=== PATIENT | male | born 1945 | race Caucasian/White ===

== ENCOUNTER 2021-04-18 19:00 | Inpatient (IN) | payer MEDICARE, OTHER ==
[~2021-04-18] VITALS: Ht 172.7 cm; Wt 87.6 kg
[2021-04-18] MEDS ORDERED: SODIUM CHLORIDE 0.9% 1000ML 1,000 ML IV STA ×2 (19:14→20:43)
[2021-04-18 19:43] LABS: BASOPHILS # (AUTO) 0.1 (0.0-0.1); BASOPHILS % 0.3 % (0.0-1.0); HEMATOCRIT 51.2 % (38.2-49.6); HEMOGLOBIN 15.6 g/dL (14.0-18.0); LYMPHOCYTES # (AUTO) 1.1 (1.0-3.2); MEAN CORPUSCULAR HGB CONC 30.5 g/dL (31-35); MEAN CORPUSCULAR VOLUME 95.2 fL (81-99); MONOCYTES # (AUTO) 0.8 (0.2-0.8); MONOCYTES % 3.5 % (4.4-11.3); NEUTROPHILS # (AUTO) 19.5 (2.1-6.9); NEUTROPHILS % 90.5 % (38.7-80.0); PLATELET COUNT 316 x10e3/uL (140-360); RED BLOOD COUNT 5.38 x10e6/uL (4.3-5.7); RED CELL DISTRIBUTION WIDTH 15.2 % (11.7-14.4)
[2021-04-18 20:10] LABS: ALBUMIN 3.9 g/dL (3.5-5.0); ANION GAP 39.5 mmol/L (8-16); CALCIUM 9.1 mg/dL (8.4-10.2); CREATININE, SERUM 2.35 mg/dL (0.72-1.25)
[2021-04-18] MEDS ORDERED: PIPERACILLIN/TAZOBACTAM 3.375 GM in SODIUM CHLORIDE 0.9% 50ML 50 ML IV STA (20:14)
[2021-04-18] MEDS ORDERED: Vancomycin IV 1 GM in SODIUM CHLORIDE 0.9% 250ML 250 ML IV STA (20:14)
[2021-04-18 20:19] LABS: POTASSIUM 6.5 mmol/L (3.5-5.1)
[2021-04-18] MEDS ORDERED: INSULIN REGULAR, HUMAN 3ML VL 100 UNIT in SODIUM CHLORIDE 0.9% 100 ML IV SCH ×2 (20:30)
[2021-04-18] MEDS ORDERED: CALCIUM GLUCONATE 10% INJ 0.465 MEQ/ML VIAL IV STA (20:42)
[2021-04-18] MEDS ORDERED: SOD POLYSTYRENE SULFONATE SUSP 15 GM/60 ML BTL PO STA (20:42)
[2021-04-18] MEDS ORDERED: ALBUTEROL SULF 0.083% NEB SOLN 3 ML NEB NEB STA (20:42)
[2021-04-18 21:01] LABS: CLARITY,URINE CLEAR (CLEAR); COLOR,URINE YELLOW (YELLOW); KETONES,URINE 2+ (NEGATIVE); LEUKOCYTE ESTERASE ,URINE NEGATIVE (NEGATIVE); NITRITE,URINE NEGATIVE (NEGATIVE); PROTEIN,URINE DIPSTICK TRACE (NEGATIVE); URINE UROBILINOGEN 0.2 mg/dL (0.2 - 1)
[2021-04-18 21:18] LABS: CREATINE KINASE MB 2.1 ng/mL (0-5.0); THYROID STIMULATING HORMONE 2.027 uIU/mL (0.350-4.940)
[2021-04-18 21:21] LABS: BACTERIA,URINE RARE /HPF; EPITHELIAL CELLS,URINE RARE /LPF; MUCUS,URINE FEW (RARE); RBC,URINE 0-5 /HPF (0-5); WBC,URINE (MAN) 0-5 /HPF (0-5)
[2021-04-18] MEDS ORDERED: ALBUTEROL SULF 0.083% NEB SOLN 3 ML NEB ONE (21:27)
[2021-04-18 21:51] LABS: BAND NEUTROPHILS % (MANUAL) 4 %; LYMPHOCYTES % (MANUAL) 7 % (19-48); MONOCYTES % (MANUAL) 3 % (3.4-9.0); NEUTROPHILS % (MANUAL) 86 % (40-74); PLATELET ESTIMATE ADEQUATE; PLATELET MORPHOLOGY COMMENT NORMAL; RBC MORPHOLOGY COMMENT NORMAL
[2021-04-18 22:45] VITALS: BP 119/61
[2021-04-18 23:00] VITALS: BP_SYST 116; BP_SYST 6; BP_DIAS 53
[2021-04-18 23:06] VITALS: BP 116/53
[2021-04-18 23:15] VITALS: BP 111/51
[2021-04-18 23:30] VITALS: BP 103/52
[2021-04-18] MEDS ORDERED: Insulin Pump (23:41)
[2021-04-18 23:45] VITALS: BP 101/48
[2021-04-18] MEDS ORDERED: METFORMIN HCL500 MG PO (23:45)
[2021-04-18] MEDS ORDERED: LISINOPRIL10 MG PO (23:45)
[2021-04-18] MEDS ORDERED: LIPITOR20 MG PO (23:45)
[2021-04-18] MEDS ORDERED: VITAMIN D310 MCG (23:45)
[2021-04-19] VITALS (25 sets, daily range): BP systolic 86–128; BP diastolic 34–69
[2021-04-19] MEDS: SODIUM CHLORIDE 0.9% 1000ML 1,000 ML IV SCH ×3 (05:00→18:49)
[2021-04-19 05:01] LABS: BASOPHILS # (AUTO) 0.1 (0.0-0.1); BASOPHILS % 0.3 % (0.0-1.0); HEMATOCRIT 47.7 % (38.2-49.6); HEMOGLOBIN 14.2 g/dL (14.0-18.0); LYMPHOCYTES # (AUTO) 1.6 (1.0-3.2); LYMPHOCYTES % 5.4 % (18.0-39.1); MEAN CORPUSCULAR HGB CONC 29.8 g/dL (31-35); MEAN CORPUSCULAR VOLUME 97.5 fL (81-99); MONOCYTES # (AUTO) 2.2 (0.2-0.8); MONOCYTES % 7.7 % (4.4-11.3); NEUTROPHILS # (AUTO) 24.9 (2.1-6.9); NEUTROPHILS % 85.3 % (38.7-80.0); PLATELET COUNT 279 x10e3/uL (140-360); RED BLOOD COUNT 4.89 x10e6/uL (4.3-5.7); RED CELL DISTRIBUTION WIDTH 15.7 % (11.7-14.4)
[2021-04-19] MEDS ORDERED: SODIUM CHLORIDE 0.9% 1000ML 1,000 ML ONE (05:04)
[2021-04-19 06:16] LABS: BLOOD UREA NITROGEN 49 mg/dL (7-26); BUN/CREATININE RATIO 18 (6-25); CALCIUM 8.2 mg/dL (8.4-10.2); CHLORIDE 100 mmol/L (98-107); CREATININE, SERUM 2.77 mg/dL (0.72-1.25); EST GLOMERULAR FILTRATION RATE 22 ML/MIN (60-); SODIUM 137 mmol/L (136-145)
[2021-04-19 06:17] LABS: ANION GAP 38.7 mmol/L (8-16)
[2021-04-19 06:18] LABS: POTASSIUM 6.7 mmol/L (3.5-5.1)
[2021-04-19 06:19] LABS: CARBON DIOXIDE < 5 mmol/L (22-29); GLUCOSE 628 mg/dL (74-118)
[2021-04-19] MEDS ORDERED: SODIUM BICARBONATE 8.4% INJ 50 ML SYR IV ONE (08:45)
[2021-04-19] MEDS ORDERED: CEFTRIAXONE 1 GM in SODIUM CHLORIDE 0.9% 50ML 50 ML IV SCH (09:00)
[2021-04-19] MEDS ORDERED: INSULIN REGULAR, HUMAN 3ML VL 100 UNIT in SODIUM CHLORIDE 0.9% 99 ML IV SCH ×2 (09:15)
[2021-04-19] MEDS ORDERED: DEXTROSE 50% SYRINGE 50 ML IV PRN ×2 (09:15→23:30)
[2021-04-19] MEDS: CEFTRIAXONE 1 GM in SODIUM CHLORIDE 0.9% 50ML 50 ML IV SCH (09:53)
[2021-04-19] MEDS ORDERED: MAGNESIUM SULF 1GRAM/DEXTROSE 100 ML IV PRN (10:00)
[2021-04-19] MEDS ORDERED: DEXTROSE 5%/0.45% SOD CHL 1,000 ML IV SCH (10:00)
[2021-04-19] MEDS ORDERED: POTASSIUM CHLORIDE 20MEQ/100ML 200 ML IV PRN (10:00)
[2021-04-19] MEDS ORDERED: SODIUM CHLORIDE 0.9% 1000ML 1,000 ML IV SCH (10:00)
[2021-04-19 10:27] LABS: ANION GAP 34.7 mmol/L (8-16); CALCIUM 8.2 mg/dL (8.4-10.2); CREATININE, SERUM 3.01 mg/dL (0.72-1.25); MAGNESIUM 2.4 MG/DL (1.3-2.1); POTASSIUM 4.7 mmol/L (3.5-5.1)
[2021-04-19] MEDS: INSULIN REGULAR, HUMAN 3ML VL 100 UNIT in SODIUM CHLORIDE 0.9% 100 ML IV SCH ×4 (11:34→22:15)
[2021-04-19 12:45] LABS: BASOPHILS # (AUTO) 0.1 (0.0-0.1); BASOPHILS % 0.2 % (0.0-1.0); HEMATOCRIT 44.8 % (38.2-49.6); HEMOGLOBIN 14.2 g/dL (14.0-18.0); LYMPHOCYTES # (AUTO) 1.4 (1.0-3.2); LYMPHOCYTES % 5.9 % (18.0-39.1); MEAN CORPUSCULAR HGB CONC 31.7 g/dL (31-35); MEAN CORPUSCULAR VOLUME 91.6 fL (81-99); MONOCYTES # (AUTO) 2.1 (0.2-0.8); NEUTROPHILS # (AUTO) 19.8 (2.1-6.9); NEUTROPHILS % 83.8 % (38.7-80.0); PLATELET COUNT 283 x10e3/uL (140-360); RED BLOOD COUNT 4.89 x10e6/uL (4.3-5.7); RED CELL DISTRIBUTION WIDTH 15.4 % (11.7-14.4)
[2021-04-19 13:35] LABS: LYMPHOCYTES % (MANUAL) 12 % (19-48); MONOCYTES % (MANUAL) 5 % (3.4-9.0); NEUTROPHILS % (MANUAL) 83 % (40-74); PLATELET ESTIMATE ADEQUATE; PLATELET MORPHOLOGY COMMENT NORMAL; RBC MORPHOLOGY COMMENT NORMAL
[2021-04-19 14:16] LABS: CALCIUM 7.9 mg/dL (8.4-10.2); CREATININE, SERUM 2.76 mg/dL (0.72-1.25)
[2021-04-19 17:31] LABS: ANION GAP 18.6 mmol/L (8-16); CALCIUM 8.4 mg/dL (8.4-10.2); CREATININE, SERUM 2.36 mg/dL (0.72-1.25); POTASSIUM 3.6 mmol/L (3.5-5.1)
[2021-04-19] MEDS ORDERED: DEXTROSE 5%/0.9% SOD CHL 1,000 ML IV SCH (18:30)
[2021-04-19 21:08] LABS: CALCIUM 8.1 mg/dL (8.4-10.2); CREATININE, SERUM 1.98 mg/dL (0.72-1.25)
[2021-04-19] MEDS ORDERED: POTASSIUM CHLORIDE 20 MEQ TAB CR PO STA (21:29)
[2021-04-19] MEDS ORDERED: D5NS/KCL 20MEQ 1,000 ML IV ONE (21:46)
[2021-04-19] MEDS: ATORVASTATIN 40 MG TAB PO SCH (21:46)
[2021-04-19] MEDS: D5NS/KCL 20MEQ 1,000 ML IV SCH (22:06)
[2021-04-19] MEDS ORDERED: DEXTROSE 50% SYRINGE 50 ML IV ONE (23:41)
[2021-04-20] VITALS (23 sets, daily range): BP systolic 96–169; BP diastolic 62–96
[2021-04-20] MEDS: SODIUM CHLORIDE 0.9% 1000ML 1,000 ML IV SCH ×3 (01:15→08:59)
[2021-04-20 01:41] LABS: ANION GAP 16.5 mmol/L (8-16); CALCIUM 7.4 mg/dL (8.4-10.2); CREATININE, SERUM 1.68 mg/dL (0.72-1.25); POTASSIUM 3.5 mmol/L (3.5-5.1)
[2021-04-20 04:59] LABS: BASOPHILS # (AUTO) 0.1 (0.0-0.1); BASOPHILS % 0.3 % (0.0-1.0); HEMATOCRIT 39.5 % (38.2-49.6); LYMPHOCYTES # (AUTO) 1.4 (1.0-3.2); LYMPHOCYTES % 6.9 % (18.0-39.1); MEAN CORPUSCULAR HEMOGLOBIN 28.8 pg (28-32); MEAN CORPUSCULAR HGB CONC 32.9 g/dL (31-35); MEAN CORPUSCULAR VOLUME 87.4 fL (81-99); MONOCYTES # (AUTO) 1.6 (0.2-0.8); MONOCYTES % 8.1 % (4.4-11.3); NEUTROPHILS # (AUTO) 16.6 (2.1-6.9); PLATELET COUNT 245 x10e3/uL (140-360); RED BLOOD COUNT 4.52 x10e6/uL (4.3-5.7); RED CELL DISTRIBUTION WIDTH 15.4 % (11.7-14.4)
[2021-04-20 05:14] LABS: ANION GAP 14.8 mmol/L (8-16); CALCIUM 7.5 mg/dL (8.4-10.2); CREATININE, SERUM 1.58 mg/dL (0.72-1.25); POTASSIUM 3.8 mmol/L (3.5-5.1)
[2021-04-20 05:53] LABS: CHOL/HDL RATIO 2.4 (3.9-4.7)
[2021-04-20 06:02] LABS: THYROID STIMULATING HORMONE 0.548 uIU/mL (0.350-4.940)
[2021-04-20] MEDS: D5NS/KCL 20MEQ 1,000 ML IV SCH (06:29)
[2021-04-20] MEDS: CEFTRIAXONE 1 GM in SODIUM CHLORIDE 0.9% 50ML 50 ML IV SCH (09:17)
[2021-04-20 09:44] LABS: CALCIUM 8.4 mg/dL (8.4-10.2); CREATININE, SERUM 1.52 mg/dL (0.72-1.25); MAGNESIUM 2.1 MG/DL (1.3-2.1)
[2021-04-20] MEDS: ONDANSETRON HCL 4 MG ORAL DISINTEGRATING TAB PO PRN ×2 (11:40→21:24)
[2021-04-20] MEDS ORDERED: LEVOTHYROXINE75 MCG PO (12:57)
[2021-04-20] MEDS ORDERED: JARDIANCE25 MG PO (12:57)
[2021-04-20] MEDS: LISINOPRIL 2.5 MG TAB PO SCH (13:18)
[2021-04-20 14:45] LABS: ANION GAP 15.4 mmol/L (8-16); CALCIUM 8.1 mg/dL (8.4-10.2); CREATININE, SERUM 1.49 mg/dL (0.72-1.25); MAGNESIUM 2.1 MG/DL (1.3-2.1); POTASSIUM 4.4 mmol/L (3.5-5.1)
[2021-04-20] MEDS: D5.45%NS/KCL 20MEQ 1,000 ML IV SCH (16:09)
[2021-04-20 19:07] LABS: ANION GAP 15.2 mmol/L (8-16); CREATININE, SERUM 1.34 mg/dL (0.72-1.25); MAGNESIUM 1.9 MG/DL (1.3-2.1); POTASSIUM 4.2 mmol/L (3.5-5.1)
[2021-04-20] MEDS: INSULIN REGULAR, HUMAN 3ML VL 100 UNIT in SODIUM CHLORIDE 0.9% 100 ML IV SCH ×2 (20:08)
[2021-04-20] MEDS: ATORVASTATIN 40 MG TAB PO SCH (20:22)
[2021-04-21] VITALS (20 sets, daily range): BP systolic 122–167; BP diastolic 81–99
[2021-04-21 00:29] LABS: ANION GAP 13.3 mmol/L (8-16); CREATININE, SERUM 1.2 mg/dL (0.72-1.25); MAGNESIUM 1.9 MG/DL (1.3-2.1); POTASSIUM 4.3 mmol/L (3.5-5.1)
[2021-04-21] MEDS: D5.45%NS/KCL 20MEQ 1,000 ML IV SCH (02:19)
[2021-04-21] MEDS: INSULIN REGULAR, HUMAN 3ML VL 100 UNIT in SODIUM CHLORIDE 0.9% 100 ML IV SCH ×2 (04:02)
[2021-04-21] MEDS: LEVOTHYROXINE SODIUM 75 MCG TAB PO SCH (06:11)
[2021-04-21 07:05] LABS: ANION GAP 16.6 mmol/L (8-16); CALCIUM 8.7 mg/dL (8.4-10.2); CREATININE, SERUM 1.2 mg/dL (0.72-1.25); POTASSIUM 4.6 mmol/L (3.5-5.1)
[2021-04-21] MEDS: CEFTRIAXONE 1 GM in SODIUM CHLORIDE 0.9% 50ML 50 ML IV SCH (08:51)
[2021-04-21] MEDS: LISINOPRIL 2.5 MG TAB PO SCH (08:52)
[2021-04-21] MEDS ORDERED: ONDANSETRON HCL INJ 2MG/ML 2ML 2 MG/ML VIAL IV PRN (11:00)
[2021-04-21] MEDS ORDERED: INSULIN LISPRO 100 UNIT/1 ML 3ML VIAL SQ ONE (11:00)
[2021-04-21] MEDS ORDERED: METOCLOPRAMIDE HCL 10 MG/2ML VIAL IV ONE (11:00)
[2021-04-21] MEDS ORDERED: INSULIN GLARGINE 100 UNITS/ML VIAL SQ ONE (11:00)
[2021-04-21] MEDS ORDERED: MAALOX/LIDOCAINE/BENADRYL/NYST 30 ML BTL PO PRN (11:00)
[2021-04-21] MEDS ORDERED: DEXTROSE 50% SYRINGE 50 ML IV PRN (11:00)
[2021-04-21] MEDS: METOCLOPRAMIDE HCL 10 MG TAB PO SCH ×3 (11:31→22:07)
[2021-04-21] MEDS: INSULIN LISPRO 100 UNIT/1 ML 3ML VIAL SQ SCH ×4 (11:44→21:00)
[2021-04-21] MEDS ORDERED: DONNATAL/LIDOCAINE/MAALOX 30 ML SUSP PO PRN (16:45)
[2021-04-21] MEDS: INSULIN GLARGINE 100 UNITS/ML VIAL SQ SCH (21:00)
[2021-04-21] MEDS ORDERED: DONNATAL/LIDOCAINE/MAALOX 30 ML SUSP PO SCH (21:00)
[2021-04-21] MEDS: ATORVASTATIN 40 MG TAB PO SCH (22:07)
[2021-04-22] VITALS: BP 110/78
[2021-04-22 04:00] VITALS: BP 146/85
[2021-04-22 06:38] LABS: BASOPHILS % 0.3 % (0.0-1.0); EOSINOPHILS # (AUTO) 0.1 (0.0-0.4); EOSINOPHILS % 0.6 % (0.0-6.0); HEMATOCRIT 43.3 % (38.2-49.6); HEMOGLOBIN 14.2 g/dL (14.0-18.0); LYMPHOCYTES # (AUTO) 1.8 (1.0-3.2); LYMPHOCYTES % 19.4 % (18.0-39.1); MEAN CORPUSCULAR HEMOGLOBIN 29.2 pg (28-32); MEAN CORPUSCULAR HGB CONC 32.8 g/dL (31-35); MEAN CORPUSCULAR VOLUME 89.1 fL (81-99); MONOCYTES % 10.6 % (4.4-11.3); NEUTROPHILS # (AUTO) 6.5 (2.1-6.9); NEUTROPHILS % 68.7 % (38.7-80.0); PLATELET COUNT 176 x10e3/uL (140-360); RED BLOOD COUNT 4.86 x10e6/uL (4.3-5.7); RED CELL DISTRIBUTION WIDTH 15.4 % (11.7-14.4)
[2021-04-22] MEDS: LEVOTHYROXINE SODIUM 75 MCG TAB PO SCH (06:55)
[2021-04-22 06:59] LABS: ANION GAP 13.2 mmol/L (8-16); CALCIUM 8.6 mg/dL (8.4-10.2); CREATININE, SERUM 0.94 mg/dL (0.72-1.25); POTASSIUM 4.2 mmol/L (3.5-5.1)
[2021-04-22 07:17] LABS: MAGNESIUM 1.7 MG/DL (1.3-2.1); PHOSPHORUS 2.1 MG/DL (2.3-4.7)
[2021-04-22 08:00] VITALS: BP 153/86
[2021-04-22] MEDS: METOCLOPRAMIDE HCL 10 MG TAB PO SCH ×4 (08:27→21:13)
[2021-04-22] MEDS: INSULIN LISPRO 100 UNIT/1 ML 3ML VIAL SQ SCH ×7 (08:32→20:49)
[2021-04-22 09:30] VITALS: BP 153/86
[2021-04-22] MEDS: LISINOPRIL 2.5 MG TAB PO SCH (09:38)
[2021-04-22] MEDS: CEFTRIAXONE 1 GM in SODIUM CHLORIDE 0.9% 50ML 50 ML IV SCH (09:38)
[2021-04-22 12:00] VITALS: BP 156/94
[2021-04-22] MEDS ORDERED: MAGNESIUM OXIDE 400 MG TAB PO ONE (14:00)
[2021-04-22] MEDS ORDERED: SODIUM PHOSPHATE IN 0.9 % NACL 20 MMOL in SODIUM CHLORIDE 0.9% 250ML 250 ML IV ONE ×2 (14:00)
[2021-04-22 20:00] VITALS: BP 155/95
[2021-04-22] MEDS: INSULIN GLARGINE 100 UNITS/ML VIAL SQ SCH (20:51)
[2021-04-22] MEDS: ATORVASTATIN 40 MG TAB PO SCH (21:12)
[2021-04-23] VITALS: BP 131/89
[2021-04-23 04:00] VITALS: BP 132/81
[2021-04-23] MEDS: LEVOTHYROXINE SODIUM 75 MCG TAB PO SCH (06:17)
[2021-04-23] MEDS: INSULIN LISPRO 100 UNIT/1 ML 3ML VIAL SQ SCH ×2 (07:30→08:33)
[2021-04-23 08:00] VITALS: BP 156/98
[2021-04-23] MEDS: METOCLOPRAMIDE HCL 10 MG TAB PO SCH (08:31)
[2021-04-23] MEDS: LISINOPRIL 2.5 MG TAB PO SCH (08:34)
[2021-04-23] MEDS ORDERED: CEFTRIAXONE 1 GM VIAL ONE (08:38)
[2021-04-23] MEDS: CEFTRIAXONE 1 GM in SODIUM CHLORIDE 0.9% 50ML 50 ML IV SCH (09:30)
[2021-04-23 10:33] VITALS: BP 138/86
[2021-04-23 10:38] VITALS: BP 138/86
== END 2021-04-23 12:00 | disposition home or self-care (01) | DRG 871 ==
LOC: ER 19:14 → ERHOLD 22:24 → ICU 22:47 → IMCU 04-21 18:01
PROVIDERS: ADMIT Internal Medicine; ATTEND Internal Medicine
DX: A41.9 Sepsis, unspecified organism (principal); E11.10 Type 2 diabetes mellitus with ketoacidosis without coma; N17.0 Acute kidney failure with tubular necrosis; Z79.899 Other long term (current) drug therapy; Z85.46 Personal history of malignant neoplasm of prostate; Z90.79 Acquired absence of other genital organ(s); M19.90 Unspecified osteoarthritis, unspecified site; E03.9 Hypothyroidism, unspecified; E86.0 Dehydration; Z20.822 Contact with and (suspected) exposure to COVID-19; E87.5 Hyperkalemia; E11.22 Type 2 diabetes mellitus with diabetic chronic kidney disease; E83.41 Hypermagnesemia; E83.51 Hypocalcemia; R32 Unspecified urinary incontinence; E66.9 Obesity, unspecified; Z68.29 Body mass index [BMI] 29.0-29.9, adult; E83.39 Other disorders of phosphorus metabolism; N32.0 Bladder-neck obstruction; Z46.81 Encounter for fitting and adjustment of insulin pump; Z96.41 Presence of insulin pump (external) (internal); I12.9 Hypertensive chronic kidney disease with stage 1 through stage 4 chronic kidney disease, or unspecified chronic kidney disease; N18.9 Chronic kidney disease, unspecified
CPT/HCPCS: 36415; 71045; 71046; 76770; 80048; 80053; 80061; 81001; 82550; 82553; 82948; 83036; 83605; 83735; 84100; 84443; 84484; 85025; 87040; 87086; 93005; 93306; 94640; 96372; 99285; J0610; J0696; J1815; J1817; J2543; J2765; J3370; J7030; J7042; J7050; J7799; Q0162; U0002

== ENCOUNTER 2021-05-24 14:46 | Inpatient (IN) | payer MEDICARE ==
[~2021-05-24] VITALS: Ht 172.7 cm; Wt 87.5 kg
[2021-05-24] VITALS (8 sets, daily range): BP systolic 94–128; BP diastolic 55–74
[~2021-05-24 14:46] MED LIST: Insulin Pump; JARDIANCE25 MG PO; LEVOTHYROXINE75 MCG PO; LIPITOR20 MG PO; LISINOPRIL10 MG PO; METFORMIN HCL500 MG PO; VITAMIN D310 MCG
[2021-05-24] MEDS ORDERED: SODIUM CHLORIDE 0.9% 1000ML 1,000 ML IV SCH (15:00)
[2021-05-24 15:23] LABS: BASOPHILS % 0.3 % (0.0-1.0); EOSINOPHILS % 0.1 % (0.0-6.0); HEMATOCRIT 45.7 % (38.2-49.6); HEMOGLOBIN 14.4 g/dL (14.0-18.0); LYMPHOCYTES # (AUTO) 1.4 (1.0-3.2); LYMPHOCYTES % 12.9 % (18.0-39.1); MEAN CORPUSCULAR HEMOGLOBIN 28.7 pg (28-32); MEAN CORPUSCULAR HGB CONC 31.5 g/dL (31-35); MEAN CORPUSCULAR VOLUME 91.2 fL (81-99); MONOCYTES # (AUTO) 0.8 (0.2-0.8); MONOCYTES % 7.4 % (4.4-11.3); NEUTROPHILS # (AUTO) 8.4 (2.1-6.9); NEUTROPHILS % 78.9 % (38.7-80.0); PLATELET COUNT 273 x10e3/uL (140-360); RED BLOOD COUNT 5.01 x10e6/uL (4.3-5.7); RED CELL DISTRIBUTION WIDTH 14.9 % (11.7-14.4)
[2021-05-24 15:45] LABS: ALBUMIN 3.8 g/dL (3.5-5.0); ALBUMIN/GLOBULIN RATIO 1.2 (0.8-2.0); ANION GAP 25.7 mmol/L (8-16); CALCIUM 8.9 mg/dL (8.4-10.2); CREATININE, SERUM 1.65 mg/dL (0.72-1.25); POTASSIUM 4.7 mmol/L (3.5-5.1)
[2021-05-24] MEDS ORDERED: MAGNESIUM SULF 1GRAM/DEXTROSE 100 ML IV PRN (16:00)
[2021-05-24] MEDS ORDERED: POTASSIUM CHLORIDE 20MEQ/100ML 200 ML IV PRN (16:00)
[2021-05-24] MEDS ORDERED: SODIUM CHLORIDE 0.9% 100 ML ONE (16:27)
[2021-05-24] MEDS: SODIUM CHLORIDE 0.9% 1000ML 1,000 ML IV SCH ×2 (16:27→20:01)
[2021-05-24] MEDS ORDERED: INSULIN REGULAR, HUMAN 3ML VL 100 UNIT in SODIUM CHLORIDE 0.9% 99 ML IV SCH ×2 (16:30)
[2021-05-24] MEDS ORDERED: ONDANSETRON HCL INJ 2MG/ML 2ML 2 MG/ML VIAL IV PRN (16:45)
[2021-05-24] MEDS: CEFTRIAXONE 1 GM in SODIUM CHLORIDE 0.9% 50ML 50 ML IV SCH (17:34)
[2021-05-24] MEDS: ATORVASTATIN 40 MG TAB PO SCH (20:01)
[2021-05-24] MEDS ORDERED: ZOLPIDEM TARTRATE 5 MG TAB PO PRN (21:00)
[2021-05-24 21:22] LABS: CALCIUM 8.3 mg/dL (8.4-10.2); CREATININE, SERUM 1.14 mg/dL (0.72-1.25); MAGNESIUM 1.8 MG/DL (1.3-2.1)
[2021-05-24] MEDS: DEXTROSE 5%/0.45% SOD CHL 1,000 ML IV SCH (22:12)
[2021-05-24] MEDS ORDERED: INSULIN REGULAR, HUMAN 3ML VL 100 UNIT in SODIUM CHLORIDE 0.9% 100 ML IV SCH ×2 (23:45)
[2021-05-24] MEDS ORDERED: DEXTROSE 50% SYRINGE 50 ML IV PRN (23:45)
[2021-05-24] MEDS ORDERED: POTASSIUM CHLORIDE 20MEQ/100ML 100 ML INJ PRN (23:45)
[2021-05-25] VITALS (15 sets, daily range): BP systolic 85–139; BP diastolic 51–86
[2021-05-25 00:17] LABS: ANION GAP 11.8 mmol/L (8-16); CALCIUM 7.8 mg/dL (8.4-10.2); CREATININE, SERUM 0.94 mg/dL (0.72-1.25); MAGNESIUM 1.6 MG/DL (1.3-2.1); POTASSIUM 3.8 mmol/L (3.5-5.1)
[2021-05-25] MEDS: DEXTROSE 5%/0.45% SOD CHL 1,000 ML IV SCH ×3 (02:00→17:21)
[2021-05-25] MEDS: LEVOTHYROXINE SODIUM 75 MCG TAB PO SCH (05:04)
[2021-05-25 05:22] LABS: CALCIUM 7.9 mg/dL (8.4-10.2); CREATININE, SERUM 0.96 mg/dL (0.72-1.25); MAGNESIUM 1.8 MG/DL (1.3-2.1)
[2021-05-25 14:52] LABS: FREE T4 (FREE THYROXINE) 0.91 ng/dL (0.8-1.8); THYROID STIMULATING HORMONE 0.89 uIU/mL (0.350-4.940)
[2021-05-25] MEDS ORDERED: INSULIN LISPRO 100 UNIT/1 ML 3ML VIAL SQ SCH (16:30)
[2021-05-25] MEDS: CEFTRIAXONE 1 GM in SODIUM CHLORIDE 0.9% 50ML 50 ML IV SCH (17:21)
[2021-05-25] MEDS ORDERED: INSULIN REGULAR, HUMAN 3ML VL 100 UNIT in SODIUM CHLORIDE 0.9% 100 ML 100 ML IV PRN ×2 (17:45)
[2021-05-25 18:16] LABS: ANION GAP 15.5 mmol/L (8-16); CALCIUM 7.8 mg/dL (8.4-10.2); CREATININE, SERUM 1.04 mg/dL (0.72-1.25); POTASSIUM 4.5 mmol/L (3.5-5.1)
[2021-05-25] MEDS: ATORVASTATIN 40 MG TAB PO SCH (20:06)
[2021-05-25 20:57] LABS: ANION GAP 13.2 mmol/L (8-16); CREATININE, SERUM 0.98 mg/dL (0.72-1.25); POTASSIUM 4.2 mmol/L (3.5-5.1)
[2021-05-26] VITALS (16 sets, daily range): BP systolic 98–156; BP diastolic 53–96
[2021-05-26] MEDS: DEXTROSE 5%/0.45% SOD CHL 1,000 ML IV SCH ×2 (04:04→14:00)
[2021-05-26 05:05] LABS: BASOPHILS # (AUTO) 0.1 (0.0-0.1); BASOPHILS % 0.6 % (0.0-1.0); EOSINOPHILS # (AUTO) 0.2 (0.0-0.4); EOSINOPHILS % 2.8 % (0.0-6.0); HEMOGLOBIN 13.8 g/dL (14.0-18.0); LYMPHOCYTES # (AUTO) 2.4 (1.0-3.2); MEAN CORPUSCULAR HEMOGLOBIN 28.9 pg (28-32); MEAN CORPUSCULAR HGB CONC 32.9 g/dL (31-35); MEAN CORPUSCULAR VOLUME 87.9 fL (81-99); MONOCYTES # (AUTO) 0.8 (0.2-0.8); MONOCYTES % 9.7 % (4.4-11.3); NEUTROPHILS # (AUTO) 4.3 (2.1-6.9); NEUTROPHILS % 55.6 % (38.7-80.0); PLATELET COUNT 237 x10e3/uL (140-360); RED BLOOD COUNT 4.78 x10e6/uL (4.3-5.7); RED CELL DISTRIBUTION WIDTH 15.2 % (11.7-14.4)
[2021-05-26 05:19] LABS: ANION GAP 11.1 mmol/L (8-16); CALCIUM 8.2 mg/dL (8.4-10.2); CREATININE, SERUM 0.84 mg/dL (0.72-1.25); POTASSIUM 4.1 mmol/L (3.5-5.1)
[2021-05-26] MEDS: LEVOTHYROXINE SODIUM 75 MCG TAB PO SCH (08:36)
[2021-05-26] MEDS ORDERED: ENOXAPARIN SOD INJ 40 MG/0.4 ML SYR SC SCH (17:00)
[2021-05-26] MEDS: CEFTRIAXONE 1 GM in SODIUM CHLORIDE 0.9% 50ML 50 ML IV SCH (18:01)
[2021-05-26] MEDS: ATORVASTATIN 40 MG TAB PO SCH (21:21)
[2021-05-27] VITALS (9 sets, daily range): BP systolic 128–156; BP diastolic 67–85
[2021-05-27] MEDS: LEVOTHYROXINE SODIUM 75 MCG TAB PO SCH (07:12)
== END 2021-05-27 12:46 | disposition home or self-care (01) | DRG 637 ==
LOC: ER 14:50 → ERHOLD 16:11 → ICU 16:50
PROVIDERS: ADMIT Internal Medicine; ATTEND Internal Medicine
DX: E10.10 Type 1 diabetes mellitus with ketoacidosis without coma (principal); J12.9 Viral pneumonia, unspecified; N17.9 Acute kidney failure, unspecified; T85.694A Other mechanical complication of insulin pump, initial encounter; Z96.41 Presence of insulin pump (external) (internal); Z79.4 Long term (current) use of insulin; I10 Essential (primary) hypertension; E78.5 Hyperlipidemia, unspecified; K21.9 Gastro-esophageal reflux disease without esophagitis; Z85.46 Personal history of malignant neoplasm of prostate; E10.42 Type 1 diabetes mellitus with diabetic polyneuropathy; E03.9 Hypothyroidism, unspecified; Z20.822 Contact with and (suspected) exposure to COVID-19
CPT/HCPCS: 36415; 71045; 80048; 80053; 82010; 82948; 83036; 83605; 83735; 84439; 84443; 85025; 87040; 93005; 94799; 99284; J0696; J1650; J1817; J2405; J7030; J7050; U0002

== ENCOUNTER 2023-09-15 12:48 | Inpatient (IN) | payer MEDICARE ==
[2023-09-11 11:21] LABS: BASOPHILS % 0.4 % (0.0-1.0); EOSINOPHILS # (AUTO) 0.1 (0.0-0.4); EOSINOPHILS % 1.3 % (0.0-6.0); HEMATOCRIT 49.1 % (38.2-49.6); LYMPHOCYTES # (AUTO) 3.4 (1.0-3.2); LYMPHOCYTES % 38.2 % (18.0-39.1); MEAN CORPUSCULAR HEMOGLOBIN 29.3 pg (28-32); MEAN CORPUSCULAR HGB CONC 32.6 g/dL (31-35); MEAN CORPUSCULAR VOLUME 89.8 fL (81-99); MONOCYTES # (AUTO) 0.7 (0.2-0.8); NEUTROPHILS # (AUTO) 4.6 (2.1-6.9); NEUTROPHILS % 51.9 % (38.7-80.0); PLATELET COUNT 250 x10e3/uL (140-360); RED BLOOD COUNT 5.47 x10e6/uL (4.3-5.7); RED CELL DISTRIBUTION WIDTH 15.6 % (11.7-14.4); WHITE BLOOD COUNT 8.91 x10e3/uL (4.8-10.8)
[2023-09-11 11:44] LABS: ANION GAP 14.1 mmol/L (8-16); CREATININE, SERUM 1.22 mg/dL (0.72-1.25); POTASSIUM 5.1 mmol/L (3.5-5.1)
[~2023-09-15] VITALS: Ht 175.3 cm; Wt 92.5 kg
[~2023-09-15 12:48] MED LIST changes: +IMMUNO PO; +MELATONIN5 M2 PO; +NOVOLOG100 UNIT/1 SC; +OZEMPIC1 MG/0.71 SC; +TYLENOL EXTRA500 MG PO; +VESICARE5 MG PO; +VITAMIN B-121000 MCG PO; +VITAMIN C1000 MG PO; +VITAMIN D3250 MC1 PO; +VITAMIN E400 UNI1 PO; +ZINC PO
[2023-09-15] MEDS ORDERED: BUPIVACAINE 0.5%/EPI 30 ML SDV INJ ONE (12:49)
[2023-09-15] MEDS ORDERED: FENTANYL CITRATE/PF 100MCG/2 ML INJ ONE (13:22)
[2023-09-15] MEDS ORDERED: MIDAZOLAM HCL 2 MG/2 ML VIAL ONE (13:22)
[2023-09-15] MEDS ORDERED: FAMOTIDINE 20 MG/2 ML VIAL IV ONE (13:43)
[2023-09-15] MEDS ORDERED: LIDOCAINE HCL 2% LOCAL INJ 5 ML SDV VIAL INJ ONE (13:43)
[2023-09-15] MEDS ORDERED: ONDANSETRON HCL INJ 2MG/ML 2ML 2 MG/ML VIAL ONE (13:43)
[2023-09-15] MEDS ORDERED: PROPOFOL IV EMULSION 10 MG/ML 20 ML VIAL ONE (13:43)
[2023-09-15] MEDS ORDERED: ROCURONIUM BROMIDE 10 MG/ML 5ML VIAL IV ONE (13:43)
[2023-09-15] MEDS ORDERED: SUGAMMADEX SODIUM 200 MG/2 ML VIAL IV ONE (13:43)
[2023-09-15] MEDS ORDERED: SUCCINYLCHOLINE CHLORIDE 20 MG/ML 10ML VIAL ONE (13:43)
[2023-09-15] MEDS ORDERED: METOCLOPRAMIDE HCL 10 MG/2ML VIAL ONE (13:43)
[2023-09-15] MEDS ORDERED: SEVOFLURANE INHAL SOLN 250 ML PEN BTL ONE (13:43)
[2023-09-15] MEDS: PIPERACILLIN/TAZOBACTAM 3.375 GM VIAL ONE (13:53)
[2023-09-15] MEDS: LACTATED RINGER'S 1,000 ML ONE (13:53)
[2023-09-15] MEDS: GENTAMICIN 80MG/NS 100 ML 200 ML IV ONE (13:54)
[2023-09-15] MEDS ORDERED: IOPAMIDOL 610MG/1ML 300 MG/ML VIAL IV ONE (14:27)
[2023-09-15] MEDS ORDERED: DIPHENHYDRAMINE HCL 25 MG CAP PO PRN (16:30)
[2023-09-15] MEDS ORDERED: ACETAMINOPHEN/CODEINE 300MG - 30MG TAB PO PRN (16:30)
[2023-09-15] MEDS ORDERED: ONDANSETRON HCL INJ 2MG/ML 2ML 2 MG/ML VIAL IV PRN (16:30)
[2023-09-15] MEDS ORDERED: PHENAZOPYRIDINE HCL 100 MG TAB PO PRN (16:30)
[2023-09-15] MEDS ORDERED: ACETAMINOPHEN 1000 MG/100 ML IV PRN (18:00)
[2023-09-15] MEDS ORDERED: DEXTROSE 50% SYRINGE 50 ML IV PRN (18:00)
[2023-09-15 18:07] VITALS: BP 142/68; PULSE 88; RESP 18; TEMP 97.5; O2SAT 100
[2023-09-15 18:08] VITALS: BP 142/68; PULSE 88; RESP 18; TEMP 97.5; O2SAT 100
[2023-09-15 18:12] VITALS: BP 124/66; PULSE 78; RESP 18; TEMP 97.9; O2SAT 98
[2023-09-15] MEDS: SODIUM CHLORIDE 0.9% 1000ML 1,000 ML IV SCH (18:21)
[2023-09-15] MEDS: INSULIN LISPRO 100 UNIT/1 ML 3ML VIAL SQ SCH ×2 (18:25→20:58)
[2023-09-15] MEDS: Clindamycin INJ 300 MG/50 ML 50 ML IV SCH (18:32)
[2023-09-15 20:00] VITALS: BP_SYST 138; BP_SYST 139; BP_DIAS 68; PULSE 106; RESP 18; TEMP 97.2; O2SAT 98
[2023-09-15] MEDS: INSULIN GLARGINE 100 UNITS/ML VIAL SQ ONE (20:58)
[2023-09-16] VITALS: BP 100/67; PULSE 94; RESP 18; TEMP 97.6; O2SAT 98
[2023-09-16 04:54] LABS: BASOPHILS # (AUTO) 0.1 (0.0-0.1); BASOPHILS % 0.5 % (0.0-1.0); EOSINOPHILS # (AUTO) 0.1 (0.0-0.4); HEMATOCRIT 41.7 % (38.2-49.6); HEMOGLOBIN 14.5 g/dL (14.0-18.0); LYMPHOCYTES # (AUTO) 3.8 (1.0-3.2); LYMPHOCYTES % 29.9 % (18.0-39.1); MEAN CORPUSCULAR HEMOGLOBIN 29.9 pg (28-32); MEAN CORPUSCULAR HGB CONC 34.8 g/dL (31-35); MONOCYTES # (AUTO) 1.4 (0.2-0.8); MONOCYTES % 10.9 % (4.4-11.3); NEUTROPHILS # (AUTO) 7.2 (2.1-6.9); NEUTROPHILS % 57.3 % (38.7-80.0); PLATELET COUNT 239 x10e3/uL (140-360); RED BLOOD COUNT 4.85 x10e6/uL (4.3-5.7); RED CELL DISTRIBUTION WIDTH 15.7 % (11.7-14.4); WHITE BLOOD COUNT 12.61 x10e3/uL (4.8-10.8)
[2023-09-16 05:22] LABS: ANION GAP 13.2 mmol/L (8-16); CALCIUM 8.7 mg/dL (8.4-10.2); CREATININE, SERUM 1.23 mg/dL (0.72-1.25); POTASSIUM 4.2 mmol/L (3.5-5.1)
[2023-09-16 07:45] VITALS: BP 118/73; PULSE 79; RESP 16; TEMP 98; O2SAT 99
[2023-09-16] MEDS ORDERED: MELATONIN 5 MG TABLET PO PRN (08:15)
[2023-09-16] MEDS: LISINOPRIL 10 MG TAB PO SCH (08:42)
[2023-09-16] MEDS: LEVOTHYROXINE SODIUM 100 MCG TAB PO SCH (08:42)
[2023-09-16] MEDS: ASCORBIC ACID 500 MG TAB PO SCH (09:00)
[2023-09-16] MEDS ORDERED: ASCORBIC ACID 500 MG TAB PO SCH (09:00)
[2023-09-16 09:22] VITALS: BP 118/73; PULSE 79; RESP 16; TEMP 98; O2SAT 99
[2023-09-16] MEDS ORDERED: INSULIN LISPRO 100 UNIT/1 ML 3ML VIAL SQ SCH (11:30)
[2023-09-16] MEDS ORDERED: ATORVASTATIN 40 MG TAB PO SCH (21:00)
[2023-09-16] MEDS ORDERED: INSULIN GLARGINE 100 UNITS/ML VIAL SQ SCH (21:00)
== END 2023-09-16 10:34 | disposition home or self-care (01) | DRG 664 ==
LOC: OR 12:48 → PACU V 15:36 → MED/SURG 17:44
PROVIDERS: ADMIT Internal Medicine; ATTEND Internal Medicine
PROC: 0TJB8ZZ Inspection of Bladder, Via Natural or Artificial Opening Endoscopic (ICD-10-PCS; 2023-09-15)
PROC: 0TWB0LZ Revision of Artificial Sphincter in Bladder, Open Approach (ICD-10-PCS; principal; 2023-09-15 15:41)
DX: T83.111A Breakdown (mechanical) of implanted urinary sphincter, initial encounter (principal); N31.9 Neuromuscular dysfunction of bladder, unspecified; N39.46 Mixed incontinence; E11.65 Type 2 diabetes mellitus with hyperglycemia; Z96.41 Presence of insulin pump (external) (internal); Z79.85 Long-term (current) use of injectable non-insulin antidiabetic drugs; Z79.84 Long term (current) use of oral hypoglycemic drugs; I10 Essential (primary) hypertension; E78.5 Hyperlipidemia, unspecified; E03.9 Hypothyroidism, unspecified; G47.33 Obstructive sleep apnea (adult) (pediatric); M19.91 Primary osteoarthritis, unspecified site; Z79.899 Other long term (current) drug therapy; Z90.79 Acquired absence of other genital organ(s); Z85.46 Personal history of malignant neoplasm of prostate; Y83.1 Surgical operation with implant of artificial internal device as the cause of abnormal reaction of the patient, or of later complication, without mention of misadventure at the time of the procedure
CPT/HCPCS: 36415; 80048; 82948; 85025; 93005; C1815; J0330; J1580; J2001; J2250; J2405; J2543; J2765; J7030

== ENCOUNTER 2024-01-30 09:31 | Emergency (ER) | payer MEDICARE ==
[~2024-01-30] VITALS: Ht 175.3 cm; Wt 92.1 kg
[2024-01-30 09:45] VITALS: TEMP 98
[2024-01-30] MEDS ORDERED: LEVOTHYROXINE112 MCG PO (10:03)
[2024-01-30] MEDS: TRAMADOL HCL 50 MG TAB PO ONE (10:28)
[2024-01-30] MEDS: KETOROLAC TROMETHAMINE 30 MG/ML VIAL IM STA (10:30)
[2024-01-30] MEDS ORDERED: ULTRAM 50MG50 MG PO (11:25)
[2024-01-30] MEDS ORDERED: NAPROXEN250 MG PO (11:25)
[2024-01-30 11:46] VITALS: PULSE 78; RESP 18; O2SAT 98
== END 2024-01-30 12:29 | disposition home or self-care (01) ==
LOC: ER 09:40
DX: M25.561 Pain in right knee (principal); X50.1XXA Overexertion from prolonged static or awkward postures, initial encounter; I10 Essential (primary) hypertension; E11.9 Type 2 diabetes mellitus without complications; E78.5 Hyperlipidemia, unspecified; E03.9 Hypothyroidism, unspecified; Z85.46 Personal history of malignant neoplasm of prostate
CPT/HCPCS: 73562; 99283; J1885

== ENCOUNTER → 2024-02-13 | Outpatient (REF) | payer MEDICARE ==
[~2024-02-13] MED LIST changes: +LEVOTHYROXINE112 MCG PO; +NAPROXEN250 MG PO; +ULTRAM 50MG50 MG PO
== END ==
LOC: CT 11:25
PROVIDERS: ATTEND Urology
DX: N50.0 Atrophy of testis (principal); K43.9 Ventral hernia without obstruction or gangrene; K57.90 Diverticulosis of intestine, part unspecified, without perforation or abscess without bleeding
CPT/HCPCS: 74176

== ENCOUNTER → 2024-03-29 | Day surgery (SDC) | payer MEDICARE ==
[2024-03-26 12:38] LABS: BASOPHILS # (AUTO) 0.1 (0.0-0.1); BASOPHILS % 0.4 % (0.0-1.0); EOSINOPHILS # (AUTO) 0.1 (0.0-0.4); EOSINOPHILS % 0.8 % (0.0-6.0); HEMOGLOBIN 16.3 g/dL (14.0-18.0); LYMPHOCYTES % 31.8 % (18.0-39.1); MEAN CORPUSCULAR HEMOGLOBIN 29.9 pg (28-32); MEAN CORPUSCULAR HGB CONC 32.6 g/dL (31-35); MEAN CORPUSCULAR VOLUME 91.6 fL (81-99); MONOCYTES # (AUTO) 1.2 (0.2-0.8); MONOCYTES % 9.3 % (4.4-11.3); NEUTROPHILS # (AUTO) 7.2 (2.1-6.9); NEUTROPHILS % 57.5 % (38.7-80.0); PLATELET COUNT 274 x10e3/uL (140-360); RED BLOOD COUNT 5.46 x10e6/uL (4.3-5.7); RED CELL DISTRIBUTION WIDTH 15.3 % (11.7-14.4); WHITE BLOOD COUNT 12.48 x10e3/uL (4.8-10.8)
[2024-03-26 12:51] LABS: ANION GAP 15.9 mmol/L (8-16); CALCIUM 9.3 mg/dL (8.4-10.2); CREATININE, SERUM 1.3 mg/dL (0.72-1.25); POTASSIUM 4.9 mmol/L (3.5-5.1)
[~2024-03-29] MED LIST changes: +ASPIRIN81 MG PO; +BUPIVACAINE HCL 0.5% INJ 30 ML VIAL INJ ONE; +CANDICIDAL CAP1 EACH PO; +CEYLON CINNAMON PO; +EPHEDRINE SULFATE INJ 50 MG/ML VIAL ONE; +FENTANYL CITRATE/PF 100MCG/2 ML INJ ONE; +FUROSEMIDE40 MG PO; +GENTAMICIN SULFATE 40 MG/ML 2 ML VIAL ONE; +GLYCOPYRROLATE INJ 0.2 MG/ML VIAL ONE; +LIDOCAINE 1% W/EPINEPHRINE 20 ML VIAL ONE; +LIDOCAINE HCL 2% LOCAL INJ 5 ML SDV VIAL INJ ONE; +NEOSTIGMINE 1 MG/ML 10ML VIAL ONE; +ONDANSETRON HCL INJ 2MG/ML 2ML 2 MG/ML VIAL ONE; +PROPOFOL IV EMULSION 10 MG/ML 20 ML VIAL ONE; +ROCURONIUM BROMIDE 10 MG/ML 5ML VIAL IV ONE; +SEVOFLURANE INHAL SOLN 250 ML PEN BTL ONE
[2024-03-29] MEDS: LACTATED RINGER'S 1,000 ML ONE (13:46)
[2024-03-29] MEDS: CLINDAMYCIN 600MG / 50ML 50 ML IV ONE (13:47)
[2024-03-29] MEDS: LEVOFLOXACIN 500MG/D5W 100ML 100 ML IV ONE (13:47)
[2024-03-29] MEDS: PIPERACILLIN/TAZOBACTAM 3.375 GM VIAL ONE (13:47)
[2024-03-29 14:18] VITALS: TEMP 97.1
[2024-03-29 15:15] VITALS: BP 128/79; PULSE 85; RESP 15; O2SAT 98
== END | disposition home or self-care (01) ==
LOC: OR 10:42
PROVIDERS: ATTEND Urology
DX: T83.111A Breakdown (mechanical) of implanted urinary sphincter, initial encounter (principal); R32 Unspecified urinary incontinence; N35.919 Unspecified urethral stricture, male, unspecified site; N32.0 Bladder-neck obstruction; I10 Essential (primary) hypertension; E78.5 Hyperlipidemia, unspecified; E11.9 Type 2 diabetes mellitus without complications; E03.9 Hypothyroidism, unspecified; E66.01 Morbid (severe) obesity due to excess calories; Y83.8 Other surgical procedures as the cause of abnormal reaction of the patient, or of later complication, without mention of misadventure at the time of the procedure; Z01.812 Encounter for preprocedural laboratory examination; Z01.818 Encounter for other preprocedural examination; Z79.84 Long term (current) use of oral hypoglycemic drugs; Z79.4 Long term (current) use of insulin; Z79.1 Long term (current) use of non-steroidal anti-inflammatories (NSAID); Z79.82 Long term (current) use of aspirin; Z79.899 Other long term (current) drug therapy
CPT/HCPCS: 36415 ×2; 53899; 71046; 80048; 82948; 85025; J1580; J1956; J2003; J2405; J2543; J2704; J2710; J3010; J7121